=== PATIENT | male | born 1975 | race Hispanic/Latino ===

== ENCOUNTER 2018-01-16 22:29 | Emergency (ER) | payer OTHER ==
[2018-01-16 22:42] VITALS: RESP 16; TEMP 97.8; O2SAT 100
[2018-01-16 23:09] VITALS: BP 130/82; PULSE 52
--- NOTE | 2018-01-16 23:44 | ED PDOC ---
HPI: Chest Pain Time Seen by Provider: 01/16/18 22:51 Chief Complaint (Nursing): Chest Pain Chief Complaint (Provider): Chest Pain History Per: Patient History/Exam Limitations: no limitations Onset/Duration Of Symptoms: Hrs (x 24) Current Symptoms Are (Timing): Still Present Additional Complaint(s): Darren Briceño is a 42 year old male with a medical history of atrial fibrillation presents to the ED complaining of chest pain, onset 24 hours ago. Patient reports intermittent chest tightness that switched sides from left to right. He said that he felt light headed twice today, but did not pass out. Patient also reports that he did not feel atrial fibrillation was active and that he is compliant with Lopressor and baby aspirin. He denies any chest pain currently. PMD: Dr. Mikhail Guzman MD Past Medical History Reviewed: Historical Data, Nursing Documentation, Vital Signs Vital Signs: Last Vital Signs Temp 97.8 F 01/16/18 22:39 Pulse 52 L 01/16/18 23:06 Resp 16 01/16/18 22:39 BP 130/82 01/16/18 23:06 Pulse Ox 100 01/17/18 01:56 - Medical History PMH: Atrial Fibrillation - Surgical History Other surgeries: right knee surgery - Family History Family History: States: Unknown Family Hx - Allergies Allergies/Adverse Reactions: Allergies Allergy/AdvReac Type Severity Reaction Status Date / Time Penicillins Allergy RASH Verified 01/16/18 22:39 Review of Systems ROS Statement: Except As Marked, All Systems Reviewed And Found Negative Cardiovascular: Positive for: Chest Pain (tightness) Physical Exam - Reviewed Nursing Documentation Reviewed: Yes Vital Signs Reviewed: Yes - Physical Exam Appears: Positive for: Non-toxic, No Acute Distress Head Exam: Positive for: ATRAUMATIC, NORMOCEPHALIC Skin: Positive for: Normal Color, Warm, Dry Eye Exam: Positive for: EOMI, Normal appearance, PERRL Neck: Positive for: Normal, Painless ROM, Supple Cardiovascular/Chest: Positive for: Regular Rate, Rhythm. Negative for: Murmur Respiratory: Positive for: Normal Breath Sounds. Negative for: Respiratory Distress Gastrointestinal/Abdominal: Positive for: Normal Exam, Soft. Negative for: Tenderness Back: Positive for: Normal Inspection. Negative for: L CVA Tenderness, R CVA Tenderness, Vertebral Tenderness Extremity: Positive for: Normal ROM. Negative for: Pedal Edema, Deformity Neurologic/Psych: Positive for: Alert, Oriented. Negative for: Motor/Sensory Deficits - Laboratory Results Result Diagrams: 01/17/18 00:15 01/17/18 00:15 - ECG O2 Sat by Pulse Oximetry: 100 (RA) Pulse Ox Interpretation: Normal Medical Decision Making Medical Decision Making: Time: 23:24 Impression: chest pain in setting of known atrial fibrillation Intiial Plan: --CMP --Urine drug --Troponin I --CBC with differentials --PTT --Prothrombin Time --Chest x-ray Labs revealed no significant abnormalities. There was no evidence of atrial fibrillation since arrival to ED. patient was offered observation status but he declined. 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 Return precautions provided Scribe Attestation: Documented by Melly Vazquez, acting as a scribe for Clarke Nichols MD. Provider Scribe Attestation: All medical record entries made by the Scribe were at my direction and personally dictated by me. I have reviewed the chart and agree that the record accurately reflects my personal performance of the history, physical exam, medical decision making, and the department course for this patient. I have also personally directed, reviewed, and agree with the discharge instructions and disposition. Disposition - Clinical Impression Clinical Impression: Atypical chest pain - Disposition Disposition: Routine/Home Disposition Time: 12:30 Condition: STABLE Instructions: Chest Pain Forms: Dapt ([place]ian)
[2018-01-17 00:18] LABS: BASO # 0.1 K/uL (0.0-0.2); BASO % 1.1 % (0.0-2.0); EOS # 0.4 K/uL (0.0-0.7); EOS % 5.9 % (0.0-4.0); HEMOGLOBIN 15.1 g/dL (12.0-18.0); LYMPH % 42.2 % (20.0-40.0); MEAN CELL VOLUME 88.8 fl (80.0-94.0); MEAN CORPUSCULAR HEMOGLOBIN 31.8 pg (27.0-31.0); MEAN CORPUSCULAR HGB CONC 35.8 g/dL (33.0-37.0); MEAN PLATELET VOLUME 8.2 fl (7.2-11.7); MONO # 0.6 K/uL (0.0-0.8); MONO % 8.4 % (0.0-10.0); NEUT % 42.4 % (50.0-75.0); NRBC % 0.1 % (0.0-0.0); RBC 4.76 Mil/uL (4.40-5.90); RED CELL DISTRIBUTION WIDTH 13.3 % (11.5-14.5); WHITE BLOOD COUNT 7.1 K/uL (4.8-10.8)
[2018-01-17 00:30] LABS: ALB/GLOB RATIO 1.4 (1.0-2.1); ALBUMIN 4.3 g/dL (3.5-5.0); ALT/SGPT 46 U/L (21-72); AST/SGOT 30 U/L (17-59); BLOOD UREA NITROGEN 18 mg/dl (9-20); CALCIUM 9.8 mg/dL (8.4-10.2); GFR AFRICAN-AMERICAN > 60; GFR NON-AFRICAN AMERICAN > 60
[2018-01-17 00:36] LABS: PARTIAL THROMBOPLASTIN TIME 33.9 Seconds (25.6-37.1); PROTHROMBIN TIME 11.2 Seconds (9.8-13.1)
--- NOTE | 2018-01-17 14:24 | RAD ---
HISTORY: chest pain COMPARISON: Chest x-ray performed 11/29/08 TECHNIQUE: Chest, one view. FINDINGS: LUNGS: No focal consolidation. Please note that chest x-ray has limited sensitivity for the detection of pulmonary masses. PLEURA: No significant pleural effusion identified. No definite pneumothorax . CARDIOVASCULAR: The cardiomediastinal silhouette appears within normal limits of size. OSSEOUS STRUCTURES: No acute osseous abnormality identified. VISUALIZED UPPER ABDOMEN: Unremarkable. OTHER FINDINGS: None. IMPRESSION: No focal consolidation identified.
== END 2018-01-17 01:30 | disposition home or self-care (01) ==
LOC: H.ER 22:29
DX: R07.89 Other chest pain (principal); Z88.0 Allergy status to penicillin; Z86.79 Personal history of other diseases of the circulatory system